=== PATIENT | female | born 1955 ===

== ENCOUNTER 2017-06-20 13:52 | Emergency (ER) | payer OTHER ==
[2017-06-20 14:01] VITALS: BP 116/82; PULSE 91; RESP 20; TEMP 97.9; O2SAT 95
[2017-06-20] MEDS ORDERED: Amoxicillin-Clav 875-125 mg Tab PO STA (14:13)
--- NOTE | 2017-06-20 14:17 | C.PDOC ---
History Of Present Illness 61 yo female come in for evaluation of sore throat gradually developed for 3 days associated with Right sided swelling and neck apin. Pt also reqeust evaluation of B/L knees pain, aching, localized, " for many months". Otherwise, pt denies high fever, chills, headache, dizziness, drooling, dyspnea, cough, SOB , CP, abd. pain, N/V, back pian, UTI sx, rash, denies known trauma or injury to B/L knees, denies calf pain, skin changes, weakness, sensory or vascular deficits to B/L LEs. AmBulate to Ed for evaluation, appear sin pain. Time Seen by Provider: 06/20/17 14:08 Chief Complaint (Nursing): Lower Extremity Problem/Injury History Per: Patient Past Medical History Reviewed: Historical Data, Nursing Documentation, Vital Signs Vital Signs: Last Vital Signs Temp 97.9 F 06/20/17 13:58 Pulse 91 H 06/20/17 13:58 Resp 20 06/20/17 13:58 BP 116/82 06/20/17 13:58 Pulse Ox 95 06/20/17 14:27 - Medical History PMH: Arthritis Family History: States: No Known Family Hx - Social History Hx Alcohol Use: No Hx Substance Use: No - Immunization History Hx Tetanus Toxoid Vaccination: No Hx Influenza Vaccination: No Hx Pneumococcal Vaccination: No Review Of Systems Except As Marked, All Systems Reviewed And Found Negative. Constitutional: Negative for: Fever, Chills ENT: Positive for: Throat Pain, Throat Swelling. Negative for: Ear Discharge, Nose Discharge Cardiovascular: Negative for: Chest Pain Respiratory: Negative for: Cough, Shortness of Breath, Wheezing Gastrointestinal: Negative for: Nausea, Vomiting, Abdominal Pain, Diarrhea Genitourinary: Negative for: Dysuria Musculoskeletal: Positive for: Other (B/L knees pain) Skin: Negative for: Rash Neurological: Negative for: Weakness, Numbness, Altered Mental Status Physical Exam - Physical Exam Appears: Well, Non-toxic, No Acute Distress Skin: Normal Color, Warm, Dry, No Rash Head: Normacephalic Eye(s): bilateral: PERRL Ear(s): Bilateral: Normal Nose: No Flaring, No Discharge Oral Mucosa: Moist, No Drooling Tongue: Normal Appearing Lips: Normal Appearing Throat: Erythema (mod B/L), Exudate (Right tonsilar), No Drooling, Other (mod pharyngeal edema R>L) Neck: Trachea Midline, Supple Lymphatic: Adenopathy (Right submandibular) Cardiovascular: Rhythm Regular Respiratory: No Decreased Breath Sounds, No Accessory Muscle Use, No Stridor, No Wheezing Gastrointestinal/Abdominal: Soft, No Tenderness, No Distention, No Guarding Back: No CVA Tenderness Extremity: Normal ROM (of B/L knees), Tenderness (diffuse B/L knees, mild. No edema, no erythema. FAROM, noneurovascular deficits.), No Deformity, No Swelling Neurological/Psych: Oriented x3, Normal Speech, Normal Motor, Normal Sensation, Normal Reflexes ED Course And Treatment O2 Sat by Pulse Oximetry: 95 Pulse Ox Interpretation: Normal Progress Note: On re-evaluation, pt is afebrile, hemodynamicaly stable. Non- toxic. TOlerate Po well in ED. PulsOEx 95% RA. Neck: Supple, (-) JVD, (-) meningeal sign. ENT: exam c/w acute pharyngitis, Right tonsilitis. uvula midline, no edema. Lungs: CTA B/L, BS equal B/L. CVS: (+)S1S2, reg. Abd: benign, (-) guarding, (-) rebound. B/L knees: exam c/w knee arthralgia. No edema, no cellulitis, no warmth. NO defomrity. FAROM, no neurovascular deficits. Neuorlogicaly intact. Imaging is not recommend at this time to B/L knees due to hx of chronic knee pain, no hx of trauma. Pt advised. ref. to F/ U with PMD, Ortho in 1-2 days for re-eval. return to ED if any worsening or new changes. Disposition Counseled Patient/Family Regarding: Diagnosis, Need For Followup, Rx Given - Disposition Referrals: [facility] [Outside] [facility] [place] [Outside] Disposition: HOME/ ROUTINE Disposition Time: 14:24 Condition: STABLE Additional Instructions: ENCOURAGE FLUIDS TAKE MEDICATION PRESCRIBED GURGLE THROAT WITH SALTY TWICE DAILY FOR 5 MINUTES FOLLOW UP WITH PMD IN 2-3 DAYS FOR RE-EVALUATION. RETURN TO ED IF ANY WORSENING OR NEW CHANGES. Prescriptions: Amoxicillin/Clavulanate [Augmentin 875 MG-125 MG] 1 tab PO BID #14 tab Prednisone [Deltasone] 40 mg PO DAILY #6 tablet traMADol [Ultram] 50 mg PO TID #7 tab Instructions: Tonsillitis (ED), Knee Pain (ED), Arthralgia (ED) Forms: [employer] (Puerto Rican) Print Language: MOLDOVAN - Clinical Impression Clinical Impression: Acute tonsillitis, Arthralgia of knee
[2017-06-20] MEDS ORDERED: Amoxicillin-Clav 875-125 mg Tab PO ONE (14:18)
== END 2017-06-20 14:47 | disposition home or self-care (01) ==
LOC: C.ER 13:52
DX: J03.90 Acute tonsillitis, unspecified (principal); M25.562 Pain in left knee; M25.561 Pain in right knee